=== PATIENT | female | born 1985 | race Caucasian/White ===

== ENCOUNTER 2019-03-03 04:48 | Inpatient (IN) | payer BC, MEDICAID ==
[2019-03-03] MEDS ORDERED: Water For Irrigation,Sterile 1,000 ML Container IRR PRN (12:19)
[2019-03-03] MEDS ORDERED: Sodium Chloride 0.9% 2.5 ML Syringe FLUSH PRN (12:19)
[2019-03-03] MEDS ORDERED: Nalbuphine 10 MG/1 ML Vial IVPUSH PRN (12:19)
[2019-03-03] MEDS ORDERED: Ampicillin 2 GM in Sodium Chloride 0.9% 100 ML IV ONE (12:19)
[2019-03-03] MEDS ORDERED: Carboprost Tromethamine 250 MCG/1 ML Amp IM PRN (12:19)
[2019-03-03] MEDS ORDERED: Misoprostol 200 MCG Tab PO PRN (12:19)
[2019-03-03] MEDS ORDERED: Lidocaine 1% 50 ML MDV INJECT PRN (12:19)
[2019-03-03] MEDS ORDERED: Tranexamic Acid 1,000 MG in Sodium Chloride 0.9% 100 ML IV PRN (12:19)
[2019-03-03] MEDS ORDERED: Sodium Chloride 0.9% 10 ML Syringe FLUSH PRN (12:19)
[2019-03-03] MEDS ORDERED: Methylergonovine 0.2 MG/1 ML Amp IM PRN (12:19)
[2019-03-03] MEDS ORDERED: Sodium Chloride 0.9% 10 ML SDV IV PRN (12:19)
[2019-03-03] MEDS ORDERED: Butorphanol 1 MG/ML SDV IVPUSH PRN (12:19)
[2019-03-03] MEDS ORDERED: Terbutaline 1 MG/ML SDV SUBCUT PRN (12:23)
[2019-03-03] MEDS ORDERED: Oxytocin/0.9 % Sodium Chloride 30 UNIT/500 ML BAG IV SCH ×2 (12:30)
[2019-03-03] MEDS: Lactated Ringers 1,000 ML IV SCH ×3 (12:45→20:30)
--- NOTE | 2019-03-03 15:53 | PCM.LDHP ---
L&D History of Present Illness - General Date of Service: 03/03/19 Admit Problem/Dx: Patient Status Order with Admit Dx/Problem 03/03/19 12:19 Patient Status [ADT] Routine Admission Diagnosis/Problem Admission Diagnosis/Problem 03/03/19 15:49 33yo EDC 03/03/2019 40 0/7wks, O-, RI, GBS pos. 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: - Infectious Disease History Infectious Disease History: Reports: Other (See Below) Other Infectious Disease History: Patient stated she may have had chickenpox when she was little Social & Family History - Family History OBGYN: Reports: - Tobacco Use Smoking Status *Q: Current Every Day Smoker Years of Tobacco use: 13 Packs/Tins Daily: 0.5 Second Hand Smoke Exposure: Yes - Caffeine Use Caffeine Use: Reports: Tea - Recreational Drug Use Recreational Drug Use: No H&P Review of Systems - Review of Systems: Review Of Systems: See Below General: Reports: No Symptoms HEENT: Reports: No Symptoms Pulmonary: Reports: No Symptoms Cardiovascular: Reports: No Symptoms Gastrointestinal: Reports: No Symptoms Genitourinary: Reports: No Symptoms Musculoskeletal: Reports: No Symptoms Skin: Reports: No Symptoms Psychiatric: Reports: No Symptoms Neurological: Reports: No Symptoms Hematologic/Lymphatic: Reports: No Symptoms Immunologic: Reports: No Symptoms L&D Exam - Exam Exam: See Below - Vital Signs Weight: 72.575 kg - OB Specific Contraction Intensity: Strong Movement: Active Heart Tones: Present Heart Tones per Min: 150 Heart Rate (FHR) Variability: Moderate (6-25 bmp) Presentation: Vertex Estimated Weight: 3250 - Valdivia Score Valdivia Score Cervix Position: Midposition Valdivia Score Consistency: Soft Valdivia Score Effacement: >80% Valdivia Score Dilation: 3-4 cm Valdivia Score 's Station: -2 Valdivia Score Total: 9 - Exam General: Alert, Oriented, Cooperative Lungs: Clear to Auscultation, Normal Respiratory Effort. No: Decreased Breath Sounds Cardiovascular: Regular Rate, Regular Rhythm, Normal S1, Normal S2. No: Irregular Rhythm GI/Abdominal Exam: Soft Rectal Exam: Deferred Genitourinary: Cervical dilitation Back Exam: Normal Inspection, Full Range of Motion Extremities: Normal Inspection, Normal Range of Motion, Non-Tender, No Pedal Edema Skin: Warm, Dry, Intact Neurological: Cranial Nerves Intact, Reflexes Equal Bilateral, Strength Equal Bilateral, Normal Gait, Normal Speech, Normal Tone, Sensation Intact Psychiatric: Alert, Normal Affect, Normal Mood - Patient Data Lab Results Last 24 hrs: Laboratory Results - last 24 hr 03/03/19 Range/Units 12:36 WBC 24.32 H (4.0-11.0) K/uL RBC 4.00 L (4.30-5.90) M/uL Hgb 12.2 (12.0-16.0) g/dL Hct 37.1 (36.0-46.0) % MCV 92.8 (80.0-98.0) fL MCH 30.5 (27.0-32.0) pg MCHC 32.9 (31.0-37.0) g/dL RDW Std Deviation 47.1 (28.0-62.0) fl RDW Coeff of Christina 14 (11.0-15.0) % Plt Count 410 H (150-400) K/uL MPV 10.40 (7.40-12.00) fL Nucleated RBC % 0.0 /100WBC Nucleated RBCs # 0 K/uL Result Diagrams: 03/03/19 12:36 - Problem List (1) Supervision of normal IUP (intrauterine ) in primigravida SNOMED Code(s): 25174499, 196188790, 208065870, 285664056 ICD Code: Z34.00 - ENCNTR FOR SUPRVSN OF NORMAL FIRST , UNSP TRIMESTER Status: Acute Priority: High Current Visit: Yes Qualifiers: Trimester: third trimester Qualified Code(s): Z34.03 - Encounter for supervision of normal first , third trimester Problem List Initiated/Reviewed/Updated: Yes Orders Last 24hrs: Active Orders 24 hr Category Date Time Status Patient Status [ADT] Routine ADT 03/03/19 12:19 Active Bedrest Bathroom Privileges [RC] ASDIRECTED Care 03/03/19 12:23 Active Communication Order [RC] ASDIRECTED Care 03/03/19 12:23 Active Communication Order [RC] ASDIRECTED Care 03/03/19 12:23 Active Heart Tones [RC] CONTINUOUS Care 03/03/19 12:19 Active Non Stress Test [RC] PER UNIT ROUTINE Care 03/03/19 12:19 Active May Shower [RC] ASDIRECTED Care 03/03/19 12:19 Active Notify Provider [RC] PRN Care 03/03/19 12:19 Active Notify Provider [RC] PRN Care 03/03/19 12:23 Active Up ad Geeta [RC] ASDIRECTED Care 03/03/19 12:19 Active Vaginal Exam [RC] PRN Care 03/03/19 12:19 Active Vaginal Exam [RC] PRN Care 03/03/19 12:23 Active Vital Signs [RC] PER UNIT ROUTINE Care 03/03/19 12:19 Active Vital Signs [RC] PER UNIT ROUTINE Care 03/03/19 12:23 Active Regular Diet [DIET] Diet 03/03/19 Lunch Active TYPE AND SCREEN [BBK] Routine Lab 03/03/19 12:36 Received Butorphanol [Stadol] Med 03/03/19 12:19 Active 1 mg IVPUSH Q1H PRN Carboprost Tromethamine [Hemabate DS] Med 03/03/19 12:19 Active 250 mcg IM ASDIRECTED PRN Lactated Ringers [Ringers, Lactated] 1,000 ml Med 03/03/19 12:30 Active IV ASDIRECTED Lidocaine 1% [Xylocaine 1%] Med 03/03/19 12:19 Active 50 ml INJECT ONETIME PRN Methylergonovine [Methergine] Med 03/03/19 12:19 Active 0.2 mg IM ASDIRECTED PRN Nalbuphine [Nubain] Med 03/03/19 12:19 Active 10 mg IVPUSH Q1H PRN Oxytocin/0.9 % Sodium Chloride [Oxytocin 30 Unit/500 ML Med 03/03/19 12:30 Active -NS] 30 unit in 500 ml IV TITRATE Oxytocin/0.9 % Sodium Chloride [Oxytocin 30 Unit/500 ML Med 03/03/19 12:30 Active -NS] 30 unit in 500 ml IV TITRATE Sodium Chloride 0.9% [Normal Saline] Med 03/03/19 12:19 Active 10 ml IV ASDIRECTED PRN Sodium Chloride 0.9% [Saline Flush] Med 03/03/19 12:19 Active 10 ml FLUSH ASDIRECTED PRN Sodium Chloride 0.9% [Saline Flush] Med 03/03/19 12:19 Active 2.5 ml FLUSH ASDIRECTED PRN Terbutaline [Brethine] Med 03/03/19 12:23 Active 0.25 mg SUBCUT ASDIRECTED PRN Tranexamic Acid [Cyklokapron] 1,000 mg Med 03/03/19 12:19 Active Sodium Chloride 0.9% [Normal Saline] 100 ml IV ONETIME Water For Irrigation,Sterile [Sterile Water for Med 03/03/19 12:19 Active Irrigation] 1,000 ml IRR ASDIRECTED PRN miSOPROStol [Cytotec] Med 03/03/19 12:19 Active 200 mcg PO ONETIME PRN Scalp Electrode [WOMSER] Per Unit Routine Oth 03/03/19 12:19 Ordered Medication Administration Instruction [OM.PC] Q3H Oth 03/03/19 12:30 Ordered Peripheral IV Insertion Adult [OM.PC] Routine Oth 03/03/19 12:19 Ordered Resuscitation Status Routine Resus Stat 03/03/19 12:19 Ordered Medication Orders Butorphanol Tartrate (Stadol) 1 mg IVPUSH Q1H PRN PRN Reason: Pain Carboprost Tromethamine (Hemabate Ds) 250 mcg IM ASDIRECTED PRN PRN Reason: Post Hemorrhage Lactated Ringer's (Ringers, Lactated) 1,000 mls @ 150 mls/hr IV ASDIRECTED GABY Last Admin: 03/03/19 12:45 Dose: 150 mls/hr Oxytocin/Sodium Chloride (Oxytocin 30 Unit/500 Ml-Ns) 30 unit in 500 mls @ 500 mls/hr IV TITRATE GABY Tranexamic Acid 1,000 mg/ (Sodium Chloride) 110 mls @ 660 mls/hr IV ONETIME PRN PRN Reason: Bleeding Oxytocin/Sodium Chloride (Oxytocin 30 Unit/500 Ml-Ns) 30 unit in 500 mls @ 2 mls/hr IV TITRATE GABY; Protocol Last Titration: 03/03/19 13:47 Dose: 4 munits/min, 4 mls/hr Admin: 03/03/19 13:20 Dose: 2 munits/min, 2 mls/hr Lidocaine HCl (Xylocaine 1%) 50 ml INJECT ONETIME PRN PRN Reason: Laceration repair Methylergonovine Maleate (Methergine) 0.2 mg IM ASDIRECTED PRN PRN Reason: Post Hemorrhage Misoprostol (Cytotec) 200 mcg PO ONETIME PRN PRN Reason: Post Hemorrhage Nalbuphine HCl (Nubain) 10 mg IVPUSH Q1H PRN PRN Reason: Pain (severe 7-10) Sodium Chloride (Saline Flush) 10 ml FLUSH ASDIRECTED PRN PRN Reason: Keep Vein Open Sodium Chloride (Saline Flush) 2.5 ml FLUSH ASDIRECTED PRN PRN Reason: Keep Vein Open Sodium Chloride (Normal Saline) 10 ml IV ASDIRECTED PRN PRN Reason: IV Use Sterile Water (Sterile Water For Irrigation) 1,000 ml IRR ASDIRECTED PRN PRN Reason: delivery Terbutaline Sulfate (Brethine) 0.25 mg SUBCUT ASDIRECTED PRN PRN Reason: Tacysystole Assessment/Plan Comment:: IOL A: 33yo EDC 03/03/2019 40 0/7wks, O-, RI, GBS pos. IOL term elective P: Admit, Amp for GBS, Pitocin, epidural now. Anticipate . Dr Leyva updated
[2019-03-03] MEDS ORDERED: Bupivacaine 0.25% 10 ML SDV ONE (16:14)
[2019-03-03] MEDS ORDERED: ePHEDrine 50 MG/ML SDV ONE (16:14)
[2019-03-03] MEDS ORDERED: Lidocaine HCl/EPINEPHrine 5 ML IJ ONE (16:14)
[2019-03-03] MEDS ORDERED: Ropivacaine HCl/PF 100 ML ONE (16:14)
[2019-03-03] MEDS ORDERED: Ampicillin 1 GM AdvVial IV ONE (16:42)
[2019-03-03] MEDS ORDERED: Sodium Chloride 0.9% 50 ML ONE (16:43)
[2019-03-03] MEDS: Ampicillin 1 GM in Sodium Chloride 0.9% 50 ML IV SCH ×2 (16:45→20:43)
--- NOTE | 2019-03-03 17:05 | PCM.PREANE ---
Preanesthetic Assessment - Procedure Proposed Procedure: labor epidural - Anesthesia/Transfusion/Family Hx Anesthesia History: No Prior Anesthesia Family History of Anesthesia Reaction: No Transfusion History: No Prior Transfusion(s) - Review of Systems General: No Symptoms Pulmonary: No Symptoms Cardiovascular: No Symptoms Gastrointestinal: No Symptoms Neurological: No Symptoms - Physical Assessment NPO Status Date: 03/03/19 NPO Status Time: 13:30 Height: 1.5 m Weight: 72.575 kg ASA Class: 2 Mental Status: Alert & Oriented x3 Airway Class: Mallampati = 1 Dentition: Reports: Normal Dentition ROM/Head Extension: Full - Lab Values: Laboratory Last Values WBC 24.32 K/uL (4.0-11.0) H 03/03/19 12:36 RBC 4.00 M/uL (4.30-5.90) L 03/03/19 12:36 Hgb 12.2 g/dL (12.0-16.0) 03/03/19 12:36 Hct 37.1 % (36.0-46.0) 03/03/19 12:36 MCV 92.8 fL (80.0-98.0) 03/03/19 12:36 MCH 30.5 pg (27.0-32.0) 03/03/19 12:36 MCHC 32.9 g/dL (31.0-37.0) 03/03/19 12:36 RDW Std Deviation 47.1 fl (28.0-62.0) 03/03/19 12:36 RDW Coeff of Christina 14 % (11.0-15.0) 03/03/19 12:36 Plt Count 410 K/uL (150-400) H 03/03/19 12:36 MPV 10.40 fL (7.40-12.00) 03/03/19 12:36 Nucleated RBC % 0.0 /100WBC 03/03/19 12:36 Nucleated RBCs # 0 K/uL 03/03/19 12:36 Blood Type O NEGATIVE 03/03/19 12:36 Antibody Screen POSITIVE 03/03/19 12:36 Antibody Identification Anti-M 03/03/19 12:36 - Allergies Allergies/Adverse Reactions: Allergies Allergy/AdvReac Type Severity Reaction Status Date / Time No Known Allergies Allergy Verified 02/09/19 12:47 - Blood Blood Available: No Product(s) Available: None - Anesthesia Plan Free Text/Narrative:: labor epidural - Acknowledgements Anesthesia Type Planned: Epidural Pt an Appropriate Candidate for the Planned Anesthesia: No Alternatives and Risks of Anesthesia Discussed w Pt/Guardian: No Pt/Guardian Understands and Agrees with Anesthesia Plan: No PreAnesthesia Questionnaire - Past Health History Medical/Surgical History: Denies Medical/Surgical History HEENT History: Reports: None Cardiovascular History: Reports: None Respiratory History: Reports: None Gastrointestinal History: Reports: None Genitourinary History: Reports: None 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, : 1 Para: 0 LMP (Approximate): Musculoskeletal History: Reports: None Neurological History: Reports: None Psychiatric History: Reports: None Endocrine/Metabolic History: Reports: None Hematologic History: Reports: None Immunologic History: Reports: None Oncologic (Cancer) History: Reports: None Dermatologic History: Reports: None - Infectious Disease History Infectious Disease History: Reports: None, Other (See Below) Other Infectious Disease History: Patient stated she may have had chickenpox when she was little - Past Surgical History Head Surgeries/Procedures: Reports: None HEENT Surgical History: Reports: None Cardiovascular Surgical History: Reports: None Respiratory Surgical History: Reports: None GI Surgical History: Reports: None Female Surgical History: Reports: None Male Surgical History: Reports: None Endocrine Surgical History: Reports: None Neurological Surgical History: Reports: None Musculoskeletal Surgical History: Reports: None Oncologic Surgical History: Reports: None Dermatological Surgical History: Reports: None - Past Imaging History Past Imaging History: Reports: None - SUBSTANCE USE Tobacco Use Within Last Twelve Months: Cigarettes Second Hand Smoke Exposure: Yes Recreational Drug Use History: No - HOME MEDS Home Medications: Home Meds [id number]/FA/Omega3/Dha/Fish Oil [ Gummies] 02/09/19 [History] - CURRENT (IN HOUSE) MEDS Current Meds: Current Medications Butorphanol Tartrate (Stadol) 1 mg IVPUSH Q1H PRN PRN Reason: Pain Carboprost Tromethamine (Hemabate Ds) 250 mcg IM ASDIRECTED PRN PRN Reason: Post Hemorrhage Lactated Ringer's (Ringers, Lactated) 1,000 mls @ 150 mls/hr IV ASDIRECTED GABY Last Admin: 03/03/19 12:45 Dose: 150 mls/hr Oxytocin/Sodium Chloride (Oxytocin 30 Unit/500 Ml-Ns) 30 unit in 500 mls @ 500 mls/hr IV TITRATE GABY Tranexamic Acid 1,000 mg/ (Sodium Chloride) 110 mls @ 660 mls/hr IV ONETIME PRN PRN Reason: Bleeding Oxytocin/Sodium Chloride (Oxytocin 30 Unit/500 Ml-Ns) 30 unit in 500 mls @ 2 mls/hr IV TITRATE GABY; Protocol Last Titration: 03/03/19 16:22 Dose: 0 munits/min, 0 mls/hr Ampicillin Sodium 1 gm/ Sodium (Chloride) 50 mls @ 100 mls/hr IV Q4H GABY Lidocaine HCl (Xylocaine 1%) 50 ml INJECT ONETIME PRN PRN Reason: Laceration repair Methylergonovine Maleate (Methergine) 0.2 mg IM ASDIRECTED PRN PRN Reason: Post Hemorrhage Misoprostol (Cytotec) 200 mcg PO ONETIME PRN PRN Reason: Post Hemorrhage Nalbuphine HCl (Nubain) 10 mg IVPUSH Q1H PRN PRN Reason: Pain (severe 7-10) Sodium Chloride (Saline Flush) 10 ml FLUSH ASDIRECTED PRN PRN Reason: Keep Vein Open Sodium Chloride (Saline Flush) 2.5 ml FLUSH ASDIRECTED PRN PRN Reason: Keep Vein Open Sodium Chloride (Normal Saline) 10 ml IV ASDIRECTED PRN PRN Reason: IV Use Sterile Water (Sterile Water For Irrigation) 1,000 ml IRR ASDIRECTED PRN PRN Reason: delivery Terbutaline Sulfate (Brethine) 0.25 mg SUBCUT ASDIRECTED PRN PRN Reason: Tacysystole Discontinued Medications Ampicillin Sodium (Ampicillin) Confirm Administered Dose 1 gm IV .STK-MED ONE Stop: 03/03/19 16:43 Bupivacaine HCl (Sensorcaine-Mpf 0.25%) Confirm Administered Dose 10 ml .ROUTE .STK-MED ONE Stop: 03/03/19 16:15 Ephedrine Sulfate (Ephedrine Sulfate) Confirm Administered Dose 50 mg .ROUTE .STK-MED ONE Stop: 03/03/19 16:15 Ampicillin Sodium 2 gm/ Sodium (Chloride) 100 mls @ 200 mls/hr IV ONETIME ONE Stop: 03/03/19 12:48 Last Admin: 03/03/19 12:48 Dose: 200 mls/hr Ropivacaine (Naropin 0.2%) Confirm Administered Dose 100 mls @ as directed .ROUTE .STK-MED ONE Stop: 03/03/19 16:15 Sodium Chloride (Normal Saline) Confirm Administered Dose 50 mls @ as directed .ROUTE .[place]-MED ONE Stop: 03/03/19 16:44 Lidocaine/Epinephrine (Lidocaine 1.5%-Epi 1:200,000) Confirm Administered Dose 5 ml IJ .[place]-MED ONE Stop: 03/03/19 16:15
[2019-03-03] MEDS ORDERED: fentaNYL 100 MCG/2 ML SDV ONE (23:37)
[2019-03-04] MEDS ORDERED: Ropivacaine HCl/PF 100 ML ONE (01:06)
[2019-03-04] MEDS: Ampicillin 1 GM in Sodium Chloride 0.9% 50 ML IV SCH (01:31)
[2019-03-04] MEDS ORDERED: Ropivacaine 0.2% 2 MG/ML 20 ML SDV ONE (03:06)
[2019-03-04] MEDS ORDERED: Lidocaine 2% 5 ML SDV ONE (04:11)
[2019-03-04] MEDS ORDERED: Morphine PF 10 MG/10 ML SDV ONE (04:35)
[2019-03-04] MEDS ORDERED: Midazolam 1 MG/ML 2 ML SDV ONE (04:39)
[2019-03-04] MEDS ORDERED: Propofol 200 MG/20 ML SDV ONE (04:40)
[2019-03-04] MEDS ORDERED: Phenylephrine/Normal Saline 100 MCG/ML 10 ML Syringe ONE (04:59)
[2019-03-04] MEDS ORDERED: Oxytocin 10 Units/1 ML SDV ONE (04:59)
[2019-03-04] MEDS ORDERED: Ondansetron 4 MG/2 ML SDV ONE ×2 (04:59→05:05)
[2019-03-04] MEDS ORDERED: Octyl 2-Cyanoacrylate 1 Tube ONE (05:10)
[2019-03-04] MEDS ORDERED: diphenhydrAMINE 50 MG/ML SDV IVPUSH PRN (05:14)
[2019-03-04] MEDS ORDERED: Bisacodyl 10 MG Supp RECTAL PRN (05:14)
[2019-03-04] MEDS ORDERED: Lanolin 100% Cream 7 GM Tube TOP PRN (05:14)
[2019-03-04] MEDS ORDERED: Acetaminophen/oxyCODONE 325-5 MG Tab PO PRN ×3 (05:14→05:40)
[2019-03-04] MEDS ORDERED: Ondansetron 4 MG/2 ML SDV IVPUSH PRN (05:14)
[2019-03-04] MEDS ORDERED: Lactated Ringers 1,000 ML IV SCH (05:15)
--- NOTE | 2019-03-04 05:18 | PCM.OPNOTE ---
- General Post-Op/Procedure Note Date of Surgery/Procedure: 03/04/19 Operative Procedure(s): Primary C/section. Pre Op Diagnosis: IUP 40 wks failair to progress Post-Op Diagnosis: Same Anesthesia Technique: Epidural, General ET Tube Primary Surgeon: Manny Leyva Coil Winding Supervisor: Octavia Strong EBL in mLs: 600 Complications: None Condition: Good
[2019-03-04] MEDS ORDERED: Ketorolac 30 MG/ML SDV ONE (05:29)
[2019-03-04] MEDS ORDERED: fentaNYL 100 MCG/2 ML SDV ONE ×2 (05:31→05:46)
[2019-03-04] MEDS ORDERED: Nalbuphine 10 MG/1 ML Vial IVPUSH PRN (05:40)
--- NOTE | 2019-03-04 06:00 | PCM.POSTAN ---
POST ANESTHESIA ASSESSMENT - MENTAL STATUS Mental Status: Alert - VITAL SIGNS SaO2: 98 Resp Rate: 20 - RESPIRATORY Respiratory Status: Respiratory Rate WNL, Supplemental Oxygen - CARDIOVASCULAR CV Status: Pulse Rate WNL - GASTROINTESTINAL GI Status: No Symptoms - PAIN Pain Score: 7 - POST OP HYDRATION Hydration Status: Adequate & Stable
--- NOTE | 2019-03-04 06:54 | OR ---
SURGEON: Manny Leyva MD DATE OF PROCEDURE: 03/04/2019 PREOPERATIVE DIAGNOSIS: Intrauterine in 40 weeks, failure to progress, thick meconium. POSTOPERATIVE DIAGNOSIS: Intrauterine in 40 weeks, failure to progress, thick meconium. OPERATION PERFORMED: Primary low-transverse section. PRIMARY SURGEON: Manny Leyva M.D. OD GRINDER OPERATOR: Octavia Strong, certified nurse electronic drafter. ANESTHESIA: Initially epidural and then converted to general anesthesia; Ms. Lucy Fontana and Dr. Pierre. ESTIMATED BLOOD LOSS: 600 mL. COMPLICATIONS: None. WIRE FENCE ERECTOR: On-call. FINDING: Male fetus, scores and weight are not available at the time of the dictation. INDICATIONS FOR SURGERY: This patient is aged 33. She is primigravida. She is followed in our clinic, primarily by our nurse electronic drafter. She is 40 weeks. She is admitted for elective induction. At the time of elective induction admission, she was 4 cm, complete vertex, and -3 station. The patient does have artificial rupture of the membrane, which shows thick meconium. She progressed to 6 cm and then she required Pitocin augmentation. The patient progressed into complete vertex and -2 station. She pushed in excess of 2 hours without any further descent and the heart rate started having variable decelerations because of the possibility of failure to descend due to cephalopelvic disproportion. The patient is 5 feet, and decision is made to do primary low-transverse section. DESCRIPTION OF PROCEDURE: The patient was brought to the OR, properly identified, and after adequate level of general anesthesia, the patient was prepped and draped in sterile fashion as usual with a Ojeda catheter in the bladder. Low transverse Pfannenstiel skin incision was done. Kamryn's fascia and rectus fascia were opened in the direction of the incision, and at this time, it became apparent that her epidural anesthesia was not adequate and the patient was in extreme pain, so we asked the Anesthesia personnel and they complied to convert her anesthesia to general anesthesia, and we stopped proceeding with surgery, and after completion of the general anesthesia, we proceeded to open the peritoneum. A bladder flap was raised in the usual manner pushing the bladder away from the lower uterine segment. Low transverse Pfannenstiel skin incision was done and extended manually with the hand. Thick meconium was noted. Fetus was in a vertex position, delivered without any problem, adequately suctioned and handed to the resuscitation team for further resuscitation after clamping and cutting the cord. The score and the weight were not available at this time. The placenta delivered spontaneous, complete, and intact, and repair of the lower uterine segment was done with 2-0 Vicryl continuous interlocking in 2 layers. Reperitonealization was done with 2-0 Vicryl continuous, and then the peritoneal cavity evacuated completely from all blood and blood clot and closed with 3-0 Vicryl continuous. The rectus fascia was closed with #1 PDS double strand continuous, the Kamryn's fascia with 3-0 Vicryl continuous and the skin closed in a subcuticular fashion. Instrument and sponge count were correct. The patient tolerated the procedure well and went to recovery room in stable general condition. CISCO / TAYLOR /[id number]
[2019-03-04] MEDS: Docusate Sodium 100 MG Cap PO SCH ×2 (10:19→21:11)
[2019-03-04] MEDS: Ketorolac 30 MG/ML SDV IVPUSH SCH ×3 (11:57→23:47)
[2019-03-05] MEDS: Docusate Sodium 100 MG Cap PO SCH (09:07)
[2019-03-05] MEDS ORDERED: Ibuprofen 800 MG Tab PO PRN (09:30)
[2019-03-05] MEDS ORDERED: Acetaminophen/HYDROcodone 325-5 MG Tab PO PRN (13:30)
--- NOTE | 2019-03-05 13:34 | PCM.DCSUM1 ---
Discharge Summary - Hospital Course Free Text/Narrative:: Discharge home, follow up in one week for postop Diagnosis: Stroke: No Modified Irvine Scale: No Symptoms at All Modified Irvine Scale Score: 0 - Discharge Data Discharge Date: 03/05/19 Discharge Disposition: Home, Self-Care 01 Condition: Good - Discharge Diagnosis/Problem(s) (1) Status post primary low transverse section SNOMED Code(s): 861864962, [id number], [id number], [id number], [id number] ICD Code: Z98.891 - HISTORY OF UTERINE SCAR FROM PREVIOUS SURGERY Status: Acute Priority: High Current Visit: Yes - Patient Summary/Data Operative Procedure(s) Performed: Primary C/section. - Patient Instructions Diet: Usual Diet as Tolerated Activity: As Tolerated, No Strenuous Activities, Rest and Relax Today Driving: Do Not Drive Showering/Bathing: May Shower Notify Provider of: Fever, Increased Pain, Swelling and Redness, Drainage, Nausea and/or Vomiting Other/Special Instructions: Discharge home, follow up in one week for postop - Discharge Plan *PRESCRIPTION DRUG MONITORING PROGRAM REVIEWED*: Not Applicable *COPY OF PRESCRIPTION DRUG MONITORING REPORT IN PATIENT HAI: Not Applicable Prescriptions/Med Rec: Ibuprofen [Motrin] 800 mg PO Q8H PRN #90 tablet PRN Reason: mild pain or fever Home Medications: Home Meds [id number]/Dha/Fish Oil [ Gummies] 02/09/19 [History] Ibuprofen [Motrin] 800 mg PO Q8H PRN #90 tablet 03/05/19 [Rx] Oxygen Therapy Mode: Room Air Referrals: [facility] [Outside] Octavia Strong CNM [Mid-] - (1 week- March 11 @ 11:00am w/ Octavia Strong 6 week- April 03 @ 2:00pm w/ Octavia Strong) - Discharge Summary/Plan Comment DC Time >30 min.: Yes - General Info Date of Service: 03/05/19 Admission Dx/Problem (Free Text: Patient Status Order with Admit Dx/Problem 03/03/19 12:19 Patient Status [ADT] Routine Admission Diagnosis/Problem Admission Diagnosis/Problem 03/03/19 15:49 33yo EDC 03/03/2019 40 0/7wks, O-, RI, GBS pos. IOL term elective Functional Status: Reports: Pain Controlled, Tolerating Diet, Ambulating, Urinating - Review of Systems General: Reports: No Symptoms HEENT: Reports: No Symptoms Pulmonary: Reports: No Symptoms Cardiovascular: Reports: No Symptoms Gastrointestinal: Reports: No Symptoms Genitourinary: Reports: No Symptoms Musculoskeletal: Reports: No Symptoms Skin: Reports: No Symptoms Neurological: Reports: No Symptoms Psychiatric: Reports: No Symptoms - Patient Data Vitals - Most Recent: Last Vital Signs Temp 36.3 C 03/05/19 11:00 Pulse 93 03/05/19 11:00 Resp 18 03/05/19 11:00 BP 114/56 L 03/05/19 11:00 Pulse Ox 96 03/05/19 11:00 Weight - Most Recent: 72.575 kg I&O - Last 24 hours: Intake & Output 03/04/19 03/05/19 03/05/19 22:59 06:59 14:59 Intake Total 1300 Output Total 1275 Balance 25 Lab Results - Last 24 hrs: Laboratory Results - last 24 hr 03/05/19 Range/Units 06:40 Hgb 10.1 L (12.0-16.0) g/dL Hct 31.5 L (36.0-46.0) % Med Orders - Current: Current Medications Bisacodyl (Dulcolax) 10 mg RECTAL ONETIME PRN PRN Reason: Constipation Butorphanol Tartrate (Stadol) 1 mg IVPUSH Q1H PRN PRN Reason: Pain Carboprost Tromethamine (Hemabate Ds) 250 mcg IM ASDIRECTED PRN PRN Reason: Post Hemorrhage Diphenhydramine HCl (Benadryl) 25 mg IVPUSH Q6H PRN PRN Reason: Itching or Nausea Docusate Sodium (Colace) 100 mg PO BID [facility] Last Admin: 03/05/19 09:07 Dose: 100 mg Emollient Ointment (Lansinoh Hpa) 0 gm TOP ASDIRECTED PRN PRN Reason: Sore Nipples Lactated Ringer's (Ringers, Lactated) 1,000 mls @ 150 mls/hr IV ASDIRECTED [facility] Last Admin: 03/03/19 20:30 Dose: 150 mls/hr Oxytocin/Sodium Chloride (Oxytocin 30 Unit/500 Ml-Ns) 30 unit in 500 mls @ 500 mls/hr IV TITRATE GABY Tranexamic Acid 1,000 mg/ (Sodium Chloride) 110 mls @ 660 mls/hr IV ONETIME PRN PRN Reason: Bleeding Oxytocin/Sodium Chloride (Oxytocin 30 Unit/500 Ml-Ns) 30 unit in 500 mls @ 2 mls/hr IV TITRATE GABY; Protocol Last Titration: 03/04/19 03:44 Dose: 0 munits/min, 0 mls/hr Lactated Ringer's (Ringers, Lactated) 1,000 mls @ 125 mls/hr IV ASDIRECTED GABY Last Admin: 03/04/19 14:46 Dose: 125 mls/hr Ibuprofen (Motrin) 800 mg PO Q8H PRN PRN Reason: mild pain or fever Last Admin: 03/05/19 12:41 Dose: 800 mg Lidocaine HCl (Xylocaine 1%) 50 ml INJECT ONETIME PRN PRN Reason: Laceration repair Methylergonovine Maleate (Methergine) 0.2 mg IM ASDIRECTED PRN PRN Reason: Post Hemorrhage Misoprostol (Cytotec) 200 mcg PO ONETIME PRN PRN Reason: Post Hemorrhage Nalbuphine HCl (Nubain) 10 mg IVPUSH Q1H PRN PRN Reason: Pain (severe 7-10) Ondansetron HCl (Zofran) 4 mg IVPUSH Q4H PRN PRN Reason: Nausea/Vomiting Oxycodone/Acetaminophen (Percocet 325-5 Mg) 1 tab PO Q4H PRN PRN Reason: Pain (moderate 4-6) Oxycodone/Acetaminophen (Percocet 325-5 Mg) 2 tab PO Q4H PRN PRN Reason: Pain (moderate 4-6) Last Admin: 03/05/19 07:37 Dose: 2 tab Oxycodone/Acetaminophen (Percocet 325-5 Mg) 1 tab PO ONETIME PRN PRN Reason: Pain (moderate 4-6) Sodium Chloride (Saline Flush) 10 ml FLUSH ASDIRECTED PRN PRN Reason: Keep Vein Open Sodium Chloride (Saline Flush) 2.5 ml FLUSH ASDIRECTED PRN PRN Reason: Keep Vein Open Sodium Chloride (Normal Saline) 10 ml IV ASDIRECTED PRN PRN Reason: IV Use Sterile Water (Sterile Water For Irrigation) 1,000 ml IRR ASDIRECTED PRN PRN Reason: delivery Terbutaline Sulfate (Brethine) 0.25 mg SUBCUT ASDIRECTED PRN PRN Reason: Tacysystole Discontinued Medications Ampicillin Sodium (Ampicillin) Confirm Administered Dose 1 gm IV .STK-MED ONE Stop: 03/03/19 16:43 Last Admin: 03/03/19 19:30 Dose: Not Given Bupivacaine HCl (Sensorcaine-Mpf 0.25%) Confirm Administered Dose 10 ml .ROUTE .STK-MED ONE Stop: 03/03/19 16:15 Ephedrine Sulfate (Ephedrine Sulfate) Confirm Administered Dose 50 mg .ROUTE .STK-MED ONE Stop: 03/03/19 16:15 Fentanyl (Sublimaze) Confirm Administered Dose 100 mcg .ROUTE .STK-MED ONE Stop: 03/03/19 23:38 Fentanyl (Sublimaze) Confirm Administered Dose 100 mcg .ROUTE .ST-MED ONE Stop: 03/04/19 05:32 Fentanyl (Sublimaze) Confirm Administered Dose 100 mcg .ROUTE .ST-MED ONE Stop: 03/04/19 05:47 Ampicillin Sodium 2 gm/ Sodium (Chloride) 100 mls @ 200 mls/hr IV ONETIME ONE Stop: 03/03/19 12:48 Last Admin: 03/03/19 12:48 Dose: 200 mls/hr Ropivacaine (Naropin 0.2%) Confirm Administered Dose 100 mls @ as directed .ROUTE .STK-MED ONE Stop: 03/03/19 16:15 Sodium Chloride (Normal Saline) Confirm Administered Dose 50 mls @ as directed .ROUTE .ST-MED ONE Stop: 03/03/19 16:44 Ampicillin Sodium 1 gm/ Sodium (Chloride) 50 mls @ 100 mls/hr IV Q4H [facility] Last Admin: 03/04/19 01:31 Dose: 100 mls/hr Ropivacaine (Naropin 0.2%) Confirm Administered Dose 100 mls @ as directed .ROUTE .STK-MED ONE Stop: 03/04/19 01:07 Ketorolac Tromethamine (Toradol) 30 mg IVPUSH Q6H GABY Stop: 03/05/19 05:31 Last Admin: 03/04/19 23:47 Dose: 30 mg Ketorolac Tromethamine (Toradol) Confirm Administered Dose 30 mg .ROUTE .STK- MED ONE Stop: 03/04/19 05:30 Lidocaine (Xylocaine-Mpf 2%) Confirm Administered Dose 5 ml .ROUTE .STK-MED ONE Stop: 03/04/19 04:12 Lidocaine/Epinephrine (Lidocaine 1.5%-Epi 1:200,000) Confirm Administered Dose 5 ml IJ .STK-MED ONE Stop: 03/03/19 16:15 Midazolam HCl (Versed 1 Mg/Ml) Confirm Administered Dose 2 mg .ROUTE .STK-MED ONE Stop: 03/04/19 04:40 Morphine Sulfate (Duramorph Pf) Confirm Administered Dose 10 mg .ROUTE .STK-MED ONE Stop: 03/04/19 04:36 Nalbuphine HCl (Nubain) 2.5 mg IVPUSH Q3H PRN PRN Reason: Pruritis Stop: 03/05/19 05:40 Octyl Cyanoacrylate (Dermabond Advance) Confirm Administered Dose 1 applic .ROUTE .STK-MED ONE Stop: 03/04/19 05:11 Ondansetron HCl (Zofran) Confirm Administered Dose 4 mg .ROUTE .STK-MED ONE Stop: 03/04/19 05:00 Ondansetron HCl (Zofran) Confirm Administered Dose 4 mg .ROUTE .STK-MED ONE Stop: 03/04/19 05:06 Oxytocin (Pitocin) Confirm Administered Dose 30 unit .ROUTE .STK-MED ONE Stop: 03/04/19 05:00 Phenylephrine HCl (Phenylephrine In Ns 100 Mcg/Ml) Confirm Administered Dose 1 mg .ROUTE .STK-MED ONE Stop: 03/04/19 05:00 Propofol (Diprivan 20 Ml) Confirm Administered Dose 200 mg .ROUTE .STK-MED ONE Stop: 03/04/19 04:41 Ropivacaine (Naropin 0.2%) Confirm Administered Dose 20 ml .ROUTE .STK-MED ONE Stop: 03/04/19 03:07 Succinylcholine Chloride (Succinylcholine Chloride) Confirm Administered Dose 200 mg .ROUTE .STK-MED ONE Stop: 03/04/19 04:42 - Exam General: Reports: Alert, Oriented, Cooperative, No Acute Distress Lungs: Reports: Normal Respiratory Effort GI/Abdominal Exam: Soft, Non-Tender Rectal (Female) Exam: Deferred Back Exam: Reports: Full Range of Motion Extremities: Normal Range of Motion Skin: Reports: Warm, Dry, Intact Wound/Incisions: Reports: Healing Well, No Drainage. Denies: Erythema Neurological: Reports: No New Focal Deficit, Normal Speech, Normal Tone Psy/Mental Status: Reports: Alert, Normal Affect, Normal Mood
== END 2019-03-05 18:36 | disposition home or self-care (01) | DRG 540 ==
LOC: MW.OB 04:48 → OBSVTOIN 03-04 04:48 → MW.OB 03-04 15:01
PROVIDERS: ADMIT Obstetrics & Gynecology; ATTEND Obstetrics & Gynecology
PROC: 10D00Z1 Extraction of Products of Conception, Low, Open Approach (ICD-10-PCS; principal; 2019-03-04)
DX: O48.0 Post-term pregnancy (principal); O99.824 Streptococcus B carrier state complicating childbirth; O99.334 Smoking (tobacco) complicating childbirth; O77.0 Labor and delivery complicated by meconium in amniotic fluid; F17.210 Nicotine dependence, cigarettes, uncomplicated; Z3A.40 40 weeks gestation of pregnancy; Z37.0 Single live birth; O76 Abnormality in fetal heart rate and rhythm complicating labor and delivery
CPT/HCPCS: 36415; 59025; 85014; 85018; 85027; 86850; 86870; 86900; 86901; A9270-GY; J0290; J0330; J1885; J2250; J2270; J2370; J2405; J2590; J2704; J3010; J7030; J7050; J7120